=== PATIENT | female | born 1955 | race Caucasian/White ===

== ENCOUNTER 2024-11-13 03:36 | Emergency (ER) | payer MEDICARE, BC, SELFPAY ==
[2024-11-13] VITALS (9 sets, daily range): BP systolic 129–175; BP diastolic 63–87; PULSE 70–86; RESP 18–20; TEMP 36.3–36.7; O2SAT 93–98; BMI 24.0
--- NOTE | 2024-11-13 04:07 | ED_ITS ---
HPI - General Adult General Chief complaint: Abdominal Pain Stated complaint: stomach pain Time Seen by Provider: 11/13/24 04:06 History of Present Illness HPI narrative: Complains of constant sharp pain below her r. rib cage and between her shoulders that started around 10 pm yesterday . rates 09/09, thinks it's possibly a gallbladder attack. slightly nauseated, denies, fever, chills, emesis, or diarrhea, normal voiding. 69-year-old woman presenting to the emergency department with a concern of intense sharp persistent pain that occurred fairly abruptly about 6 hours ago 10:00 p.m. yesterday. Her mother had gallbladder attacks and cholecystectomy and she thinks she might be experiencing the same. Has had some nausea. She has been feeling pain now also between her shoulder blades. Pain in her abdomen is the right upper abdomen underneath the ribs. No historical food intolerances. Rarely gets heartburn. Related Data Previous Rx's ?Medication ?Instructions ?Recorded ondansetron 4 mg disintegrating 4 mg PO Q4-6H PRN naus ea/vomiting 11/13/24 tablet #10 tabs oxycodone-acetaminophen 5 mg-325 1 - 2 tab PO Q4-6H OH N pain #10 11/13/24 mg tablet (Percocet) tabs Allergies Allergy/AdvReac Type Severity Reaction Status Date / Time Sulfa (Sulfonamide Allergy Severe Anaphylaxis Verified 11/13/24 03:48 Antibiotics) Review of Systems Status of ROS: Reports: 6 or more systems reviewed and unremarkable except as noted in History and below [facility] Medical History Bronchiolitis ?J21.9 - Acute bronchiolitis, unspecified (ICD-10) Cough ?R05.9 - Cough, unspecified (ICD-10) COVID ?U07.1 - COVID-19 (ICD-10) Social History Smoking Status: Never smoker Do you use any of these nicotine containing products: None How often do you have a drink containing alcohol: monthly or less How many standard drinks containing alcohol do you have on a typical day: 1 or 2 How often do you have six or more drinks on one occasion: Never AUDIT-C Alcohol total score: 1 Non-prescribed substance use: denies use service: No Exam Narrative: Exam Narrative: NAD but I suspect rather stoic. Breathing easily. Tender to palpation in the epigastrium and into the right upper quadrant. Negative Gould's. No reproducible pain to palpation of the back. Skin is warm and dry. She is well- perfused peripherally. No lower extremity edema. Heart in regular rate and rhythm. Const: Vital Signs, click to edit/add: Vital Signs - 24 hr 11/13/24 03:49 11/13/24 04:48 11/13/24 05:15 Temperature 97.3 F L Pulse Rate 75 Pulse Rate [Right Pulse Oximeter] 86 Respiratory Rate 19 18 Blood Pressure 129/85 Blood Pressure [Ri ght Upper Arm] 175/87 H Pulse Oximetry 98 98 96 Oxygen Delivery Me thod Room Air 11/13/24 05:35 11/13/24 06:00 11/13/24 06:02 Temperature 98.0 F Pulse Rate 70 76 Pulse Rate [Right Pulse Oximeter] Respiratory Rate 18 18 Blood Pressure 135/66 134/73 Blood Pressure [Ri ght Upper Arm] Pulse Oximetry 96 96 Oxygen Delivery Me thod 11/13/24 06:32 11/13/24 07:45 11/13/24 07:49 Temperature Pulse Rate 71 78 80 Pulse Rate [Right Pulse Oximeter] Respiratory Rate 20 Blood Pressure 134/66 131/63 Blood Pressure [Ri ght Upper Arm] Pulse Oximetry 93 98 96 Oxygen Delivery Me thod Documenting provider has reviewed patient's vital signs: yes Course Vital Signs Vital signs: Initial Vital Signs Temperature 97.3 F L 11/13/24 03:49 Temperature Source Temporal Artery Scan 11/13/24 03:49 Pulse Rate 86 11/13/24 03:49 Pulse Rhythm Regular 11/13/24 03:49 Respiratory Rate 19 11/13/24 03:49 Blood Pressure 175/87 H 11/13/24 03:49 Blood Pressure Mean 116 H 11/13/24 03:49 Blood Pressure Position Sitting 11/13/24 03:49 Pulse Oximetry 98 11/13/24 03:49 Oxygen Delivery Method Room Air 11/13/24 03:49 Vital Signs Temperature 97.3 F L 11/13/24 03:49 Pulse Rate 86 11/13/24 03:49 Respiratory Rate 19 11/13/24 03:49 Blood Pressure 175/87 H 11/13/24 03:49 Pulse Oximetry 98 11/13/24 03:49 Oxygen Delivery Method Room Air 11/13/24 03:49 Temperature 98.0 F 11/13/24 05:35 Pulse Rate 80 11/13/24 07:49 Respiratory Rate 20 11/13/24 06:32 Blood Pressure 131/63 11/13/24 07:49 Pulse Oximetry 96 11/13/24 07:49 Oxygen Delivery Method Room Air 11/13/24 03:49 Medications Administered Medications: Discontinued Medications Generic Name Dose Route Start Last Admin Trade Name Freq PRN Reason Stop Dose Admin Sodium Chloride 1,000 mls @ 1,000 mls/hr 11/13/24 04:12 11/13/24 05:36 0.9 % Sodium Chloride 1000 Ml IV 11/13/24 05:11 Infused .Q1H ONE Infusion Ketorolac Tromethamine 30 mg 11/13/24 04:12 11/13/24 04:34 Ketorolac 30 Mg/Ml Inj IVP 11/13/24 04:13 30 mg ONCE ONE Administration Morphine Sulfate 4 mg 11/13/24 04:12 11/13/24 04:42 Morphine 4 Mg/Ml Inj IVP 11/13/24 04:13 4 mg ONCE ONE Administration Morphine Sulfate 4 mg 11/13/24 05:53 11/13/24 05:56 Morphine 4 Mg/Ml Inj IVP 11/13/24 05:54 4 mg ONCE ONE Administration Ondansetron HCl 4 mg 11/13/24 04:12 11/13/24 04:38 Ondansetron 2 Mg/Ml Inj IVP 11/13/24 04:13 4 mg ONCE ONE Administration Medical Decision Making [facility] Narrative Medical decision making narrative: Leading in differential would be I think gallbladder disease/biliary colic. Possibly ischemic cardiovascular event. Vascular disruption? Does not appear to have pulmonary symptoms but pulmonary infarct I suppose could present similarly. Esophageal spasm less likely possible. Initiated IV. Normal saline. Zofran and morphine and ketorolac. On reassessment is notably improved. Labs are generally reassuring. Transaminases are normal. Normal troponins. Unclear etiology so I did retrieve point of care ultrasound to evaluate her gallbladder/liver.. Placing this ultrasound I did see numerous gallstones. I do not see edema surrounding the gallbladder or thickened gallbladder wall. Common bile duct is difficult to visualize I think but does not appear particularly large. I do suspect that biliary colic is likely the source of her pain. I did discuss outpatient management. Dominique notes that pain is still quite present at this point. I decided to request more formal ultrasound here in the emergency department prior to likely departure. Treated again for pain with another dose of morphine. D-dimer is reassuring age adjusted unlikely to have pulmonary embolus nor vascular dissection. Discussed findings with community coordinator. Confirmed numerous gallstones without gallbladder wall thickening common bile duct dilatation INDICATION: Right upper quadrant pain. COMPARISON: None available. TECHNIQUE: Right upper quadrant grayscale and limited color Doppler ultrasound. FINDINGS: Liver: Homogeneous echotexture. Smooth contour. No suspicious focal lesion. Multiple anechoic unilocular cysts are noted incidentally, the largest located in the left hepatic lobe measuring 3.8 cm in greatest dimension. No intrahepatic biliary ductal dilatation. Normal hepatopedal portal venous blood flow. Normal caliber of the portal vein. Peak systolic velocity of the portal vein is 28 cm/second, within normal limits. Gallbladder: Nondistended. Cholelithiasis. Normal wall thickness. Negative sonographic Gould sign. CBD: 5mm Pancreas: Normal where visualized. Uniform caliber of the visualized pancreatic duct measuring 2 mm, within upper limit of normal. The pancreas is partially obscured and therefore incompletely evaluated. Right Kidney: Normal echotexture. No hydronephrosis. No convincing sonographic evidence of nephrolithiasis. Incidental benign anechoic unilocular right upper pole renal cortical cyst measuring 1.1 cm in greatest dimension. Midline Vasculature: Unremarkable where visualized. Peritoneal Cavity: No significant ascites. Additional Findings: None. IMPRESSION: Cholelithiasis. Negative sonographic Gould`s sign. No gallbladder wall thickening or pericholecystic fluid. Nondilated extrahepatic bile duct. Incidental findings as above. Dictated by Jose Cruz Colon MD @ 11/13/2024 8:32:15 AM See patient discharge plan for further discussion Stay well-hydrated. I would avoid fatty foods for now. Anticipate a call from surgery clinic to schedule follow-up. If you do not hear from them by noon on Friday go ahead and call in. Am sending in a prescription for Percocet and Zofran. Return for recurrence of pain not resolved in an hour and half, intractable vomiting, associated fever. Medical Records Medical records reviewed: Yes I reviewed the patient's medical records Lab Data Lab results reviewed: Yes I reviewed the patient's lab results Labs: Lab Results 11/13/24 11/13/24 11/13/24 Range/Units 04:12 04:30 08:14 WBC 7.83 (4.50-11.00) K/uL RBC 4.94 (4.00-5.20) m/uL Hgb 14.2 (12.0-16.0) gm/dL Hct 42.6 (33.0-51.0) % MCV 86 (80-100) fL MCH 29 (26-34) pg MCHC 33 (32-36) gm/dL RDW Coeff of Anupama 13.2 (11.5-15.5) % Plt Count 330 (140-440) K/uL Neut % (Auto) 80.4 H (42.0-72.0) % Lymph % (Auto) 12.3 L (20-44) % [place] % (Auto) 6.1 (0.0-11.0) % Eos % (Auto) 0.6 (0.0-7.0) % Baso % (Auto) 0.5 (0.0-3.0) % Neut # (Auto) 6.30 (1.7-7.0) K/uL Lymph # (Auto) 1.00 (0.90-2.90) K/uL [place] # (Auto) 0.50 (0.00-0.90) K/UL Eos # (Auto) 0.05 (0.00-0.50) K/uL Baso # (Auto) 0.04 (0.00-0.30) K/uL Abs Immat Gran (auto) 0.01 (0.00-0.30) K/uL Imm/Tot Granulo (auto) 0.1 % D-Dimer Quant (PE/DVT) 0.55 H (0.00-0.50) ug/ml Sodium 139 (135-149) mmol/L Potassium 3.7 (3.6-5.1) mmol/L Chloride 102 (96-114) mmol/L Carbon Dioxide 28 (20-32) mmol/L Anion Gap 9 (7-15) mEq/L BUN 21 (7-30) mg/dL Creatinine 0.8 (0.5-1.5) mg/dL Estimated Creat Clear 46.50 Estimated GFR 80 ml/min Glucose 160 H (60-115) mg/dL Calcium 9.3 (8.4-10.6) mg/dL Total Bilirubin 0.5 (0.1-1.5) mg/dL Direct Bilirubin 0.2 (0.0-0.5) mg/dL AST 26 (12-35) U/L ALT 20 (4-35) U/L Alkaline Phosphatase 68 (40-150) U/L Troponin I < 0.01 (0.01-0.04) ng/mL C-Reactive Protein < 0.5 L (0.5-1.0) mg/dL Total Protein 7.2 (6.0-8.3) g/dL Albumin 4.5 (3.3-5.0) g/dL Lipase 94 (23-300) U/L Urine Color Yellow (Yellow) Urine Appearance Clear (Clear) Urine pH 6.0 (5.0-8.5) Ur Specific [place] >= 1.030 (1.000-1.030) Urine Protein Trace A (Negative) Urine Glucose (UA) Negative (Negative) Urine Ketones 3+ A (Negative) Urine Blood Trace-intact A (Negative) Urine Nitrite Negative (Negative) Urine Bilirubin Negative (Negative) Urine Urobilinogen 0.2 (0.2-1.0) Ur Leukocyte Esterase Negative (Negative) Urine RBC 0-2 (0-2) Urine WBC 0-2 (0-5) Ur Squamous Epith Cells Few (None-Few) Urine Bacteria None (None) Lab Acknowledgement Test Added POC Troponin I 0.00 L (0.01-0.04) ng/ml Discharge Plan Discharge Clinical Impression: Cholelithiasis, Biliary colic Patient Disposition: Home w/ Parent or Adult Condition: Improved Additional Instructions: Stay well-hydrated. I would avoid fatty foods for now. Anticipate a call from surgery clinic to schedule follow-up. If you do not hear from them by noon on Friday go ahead and call in. Am sending in a prescription for Percocet and Zofran. Return for recurrence of pain not resolved in an hour and half, intractable vomiting, associated fever. Prescriptions: New oxycodone-acetaminophen [Percocet] 5-325 mg tablet 1 - 2 tab PO Q4-6H PRN (Reason: pain) Qty: 10 0RF ondansetron 4 mg tablet,disintegrating 4 mg PO Q4-6H PRN (Reason: nausea/vomiting) Qty: 10 0RF Follow Up/Referrals: Provider,Not a Local [Primary Care Provider, Family Practice] Stand Alone Forms: MyHealth Info Instructions
[2024-11-13 04:23] LABS: Appearance Urine Clear (Clear)
[2024-11-13] MEDS: ONDANSETRON 2 MG/ML inj 4 MG IVP (04:38)
[2024-11-13] MEDS: MORPHINE 4 MG/ML INJ IVP ×2 (04:42→05:56)
[2024-11-13 04:43] LABS: Hematocrit* 42.6 % (33.0-51.0); Hemoglobin* 14.2 gm/dL (12.0-16.0); Immature Granulocytes Abs Auto 0.01 K/uL (0.00-0.30); Immature Granulocytes Pct Auto 0.1 %; Mean Corpuscular HGB Conc 33 gm/dL (32-36); Mean Corpuscular Hemoglobin 29 pg (26-34); Mean Corpuscular Volume 86 fL (80-100); RDW Coefficient of Variation % 13.2 % (11.5-15.5); Red Blood Count* 4.94 m/uL (4.00-5.20); Troponin, Point-of-Care* 0.00 ng/ml (0.01-0.04); White Blood Count* 7.83 K/uL (4.50-11.00)
[2024-11-13 04:44] LABS: Lymphocytes Absolute Auto 1.00 K/uL (0.90-2.90)
[2024-11-13 04:45] LABS: Slide Review Reflex No
[2024-11-13 04:56] LABS: Albumin* 4.5 g/dL (3.3-5.0); Chloride* 102 mmol/L (96-114); Sodium* 139 mmol/L (135-149)
[2024-11-13 04:57] LABS: Potassium* 3.7 mmol/L (3.6-5.1)
[2024-11-13 04:59] LABS: Alanine Aminotransferase* 20 U/L (4-35); Alkaline Phosphatase* 68 U/L (40-150); Anion Gap 9 mEq/L (7-15); Aspartate Amino Transferase* 26 U/L (12-35); Bilirubin Direct* 0.2 mg/dL (0.0-0.5); Bilirubin Total* 0.5 mg/dL (0.1-1.5); Blood Urea Nitrogen* 21 mg/dL (7-30); Carbon Dioxide* 28 mmol/L (20-32); Creatinine* 0.8 mg/dL (0.5-1.5); Est. Creatinine Clearance* 46.50; Estimated Glomerular Filt Rate 80 ml/min; Total Protein* 7.2 g/dL (6.0-8.3)
[2024-11-13 05:00] LABS: Calcium* 9.3 mg/dL (8.4-10.6); Glucose* 160 mg/dL (60-115)
--- NOTE | 2024-11-13 05:53 | CRLHL7_ITS ---
For Patients: As a result of the Cures Act, medical imaging exams and procedure reports are released immediately into your electronic medical record. You may view this report before your referring provider. If you have questions, please contact your health care provider. INDICATION: Right upper quadrant pain. COMPARISON: None available. TECHNIQUE: Right upper quadrant grayscale and limited color Doppler ultrasound. FINDINGS: Liver: Homogeneous echotexture. Smooth contour. No suspicious focal lesion. Multiple anechoic unilocular cysts are noted incidentally, the largest located in the left hepatic lobe measuring 3.8 cm in greatest dimension. No intrahepatic biliary ductal dilatation. Normal hepatopedal portal venous blood flow. Normal caliber of the portal vein. Peak systolic velocity of the portal vein is 28 cm/second, within normal limits. Gallbladder: Nondistended. Cholelithiasis. Normal wall thickness. Negative sonographic Gould sign. CBD: 5mm Pancreas: Normal where visualized. Uniform caliber of the visualized pancreatic duct measuring 2 mm, within upper limit of normal. The pancreas is partially obscured and therefore incompletely evaluated. Right Kidney: Normal echotexture. No hydronephrosis. No convincing sonographic evidence of nephrolithiasis. Incidental benign anechoic unilocular right upper pole renal cortical cyst measuring 1.1 cm in greatest dimension. Midline Vasculature: Unremarkable where visualized. Peritoneal Cavity: No significant ascites. Additional Findings: None. IMPRESSION: Cholelithiasis. Negative sonographic Gould`s sign. No gallbladder wall thickening or pericholecystic fluid. Nondilated extrahepatic bile duct. Incidental findings as above. Dictated by Jose Cruz Colon MD @ 11/13/2024 8:32:15 AM (Electronically Signed)
[2024-11-13 08:34] LABS: D Dimer Quantitative* 0.55 ug/ml (0.00-0.50)
== END 2024-11-13 08:56 | disposition home or self-care (01) ==
PROVIDERS: Emergency Provider Family Medicine
DX: K80.51 Calculus of bile duct without cholangitis or cholecystitis with obstruction (principal); K80.20 Calculus of gallbladder without cholecystitis without obstruction
CPT/HCPCS: 36415; 76705; 80048; 80076; 81001; 83690; 84484; 85025; 85379; 86140; 94761; 96374; 96375; 96376; 99284; J1885; J2270; J2405; J7030